=== PATIENT | male | born 1980 | race Caucasian/White ===

== ENCOUNTER → 2021-07-16 | Outpatient (CLI) | payer OTHER ==
--- NOTE | 2021-07-17 08:20 | RAD ---
Ultrasound right lower extremity soft tissue nonvascular HISTORY: Palpable abnormality which he patient has noted intermittently after coughing Sonographic interrogation of the right groin was performed and multiple static images were obtained. There is no focal abnormality identified. There is no hernia identified. IMPRESSION: Negative examination. Electronically signed by: John Bradford III, MD (07/17/2021 8:18 AM) [email or web address]
== END ==
LOC: US 14:19
PROVIDERS: ATTEND Clinical Nurse Specialist Family Health
DX: R10.30 Lower abdominal pain, unspecified (principal)
CPT/HCPCS: 76881